=== PATIENT | male | born 1940 | race Caucasian/White ===

== ENCOUNTER 2016-12-04 15:15 | Emergency (ER) | payer MEDICARE, BC ==
[2016-12-04 15:23] VITALS: BP 141/69; PULSE 70; RESP 20; TEMP 97.9
[2016-12-04] MEDS ORDERED: HYDROcodone/APAP 5-325MG 1 EACH TAB PO STA (15:44)
--- NOTE | 2016-12-04 15:48 | ED ---
Back Pain [facility] - General Chief Complaint: Back Pain/Injury Stated Complaint: low back pain Time Seen by Provider: 12/04/16 15:26 Source: patient, RN notes reviewed Limitations: no limitations - History of Present Illness Initial Comments: Patient is a 75-year-old male presents to the emergency room for evaluation of low back pain. Patient states he has history of chronic low back pain. Patient states he takes Naprosyn and tramadol. Patient states last night while sitting at his house he noted more consistent low back pain. Patient states the pain is in the same area as his normal pain but this pain is different. Patient states usually his pain is on and off and is worse in the morning. Patient states this pain is constant and sharp. Patient denies any pain radiating down his legs or into his buttock. Patient denies any numbness or tingling going down his legs. Patient denies fecal or urinary incontinence. Patient denies saddle anesthesia. Patient denies any recent fall or trauma to his back. Patient denies recent heavy lifting. Patient states he may have twisted the wrong way but did not recognize any significant pain afterwards. Patient denies any extremity weakness or unilateral extremity weakness. Patient does state he has a history of kidney stones. Patient is not sure if this pain is caused by kidney stones. Patient denies pain or burning during urination, trouble urinating or blood in urine. Patient denies nausea or vomiting. Patient denies abdominal pain. Patient denies headache or dizziness. - Related Data Home Medications Medication Instructions Recorded Confirmed Olmesartan Medoxomil [Benicar] 20 mg PO QAM 10/29/14 12/04/16 Tamsulosin HCl 0.4 mg PO HS 10/29/14 12/04/16 Atorvastatin [Lipitor] 10 mg PO DAILY 02/18/16 12/04/16 Cholecalciferol [Vitamin D3] 1,000 unit PO DAILY 02/18/16 12/04/16 Multivit-Min/FA/Lycopen/Lutein 1 tab PO DAILY 02/18/16 12/04/16 [Centrum Silver Tablet] Vit C/E/Zn/Coppr/Lutein/Zeaxan 1 cap PO DAILY 02/18/16 12/04/16 [Preservision Areds 2 Softgel] traMADol HCL [Ultram] 50 mg PO Q6HR PRN 02/18/16 12/04/16 Aspirin EC [Ecotrin Low Dose] 81 mg PO DAILY 12/04/16 12/04/16 Glucosamine/Chondr [place] A Sod [Osteo 1 tab PO DAILY 12/04/16 12/04/16 Bi-Flex Caplet] Naproxen 500 mg PO BID 12/04/16 12/04/16 [place]-3 Fatty Acids/Fish Oil [Fish 1 cap PO DAILY 12/04/16 12/04/16 Oil 1,000 mg Softgel] Previous Rx's Medication Instructions Recorded Diazepam [Valium] 5 mg PO BID PRN #5 tab 12/04/16 HYDROcodone/APAP 5-325MG [[place] 1 tab PO Q6HR PRN #10 tab 12/04/16 5-325] Allergies Allergy/AdvReac Type Severity Reaction Status Date / Time No Known Allergies Allergy Verified 12/04/16 15:30 Review of Systems ROS Statement: Those systems with pertinent positive or pertinent negative responses have been documented in the HPI. ROS Other: All systems not noted in ROS Statement are negative. Past Medical History Past Medical History: Hypertension, Musculoskeletal Disorder, Osteoarthritis (OA ) Additional Past Medical History / Comment(s): vertigo, BPH,steroids Dec 2015 FOR RT HIP PAIN(HAD INJ TOO) History of Any Multi-Drug Resistant Organisms: None Reported Past Surgical History: Hernia Repair, Orthopedic Surgery Additional Past Surgical History / Comment(s): [facility] inguinal hernia repairs ,lt knee repair, 02-23-16 TOTAL RT HIP Past Anesthesia/Blood Transfusion Reactions: Motion Sickness Additional Past Anesthesia/Blood Transfusion Reaction / Comment(s): vertigo Past Psychological History: No Psychological Hx Reported Smoking Status: Former smoker Past Alcohol Use History: None Reported Past Drug Use History: None Reported - Past Family History Mother Family Medical History: Cancer Additional Family Medical History / Comment(s): Mother is alive at age 98 with history of breast ca([facility]) Father Family Medical History: Osteoarthritis (OA) Additional Family Medical History / Comment(s): back problems, at age 66 from blood clot or heart attack General Exam - General Exam Comments Initial Comments: sitting in exam room, no distress. Limitations: no limitations General appearance: alert, in no apparent distress Head exam: Present: atraumatic, normocephalic, normal inspection Eye exam: Present: normal appearance Respiratory exam: Present: normal lung sounds bilaterally. Absent: respiratory distress Cardiovascular Exam: Present: regular rate, normal rhythm, normal heart sounds Extremities exam: Present: normal inspection, full ROM. Absent: tenderness Back exam: Present: normal inspection, full ROM, paraspinal tenderness ( bilateral lumbosacral), vertebral tenderness (lumbosacral). Absent: CVA tenderness (R), CVA tenderness (L) Neurological exam: Present: alert, oriented X3, CN II-XII intact, normal gait Psychiatric exam: Present: normal affect, normal mood Skin exam: Present: warm, dry, intact, normal color. Absent: rash Course Vital Signs 12/04/16 15:20 Temperature 97.9 F Pulse Rate 70 Respiratory 20 Rate Blood Pressure 141/69 O2 Sat by Pulse 98 Oximetry Medical Decision Making - Medical Decision Making Patient is a 75-year-old male presenting to the emergency room complaining of acute on chronic low back pain. Urinalysis shows no significant findings. X- ray shows no acute findings. Patient states he is feeling better after Trona given. Will send patient home with Trona and valium for pain. Patient advised to follow-up with primary care provider for further evaluation and possible MRI to rule out any other abnormalities. Patient states he understands everything that was discussed with him. Return parameters discussed. Case discussed with Dr. Wan. No neuro deficits. - Lab Data Lab Results 12/04/16 Range/Units 15:40 Urine Color Yellow Urine Appearance Clear (Clear) Urine pH 6.0 (5.0-8.0) Ur Specific [place] 1.018 (1.001-1.035) Urine Protein Negative (Negative) Urine Glucose (UA) Negative (Negative) Urine Ketones Negative (Negative) Urine Blood Negative (Negative) Urine Nitrite Negative (Negative) Urine Bilirubin Negative (Negative) Urine Urobilinogen <2.0 (<2.0) mg/dL Ur Leukocyte Esterase Negative (Negative) - Radiology Data Radiology results: report reviewed, image reviewed Disposition Clinical Impression: Acute exacerbation of chronic low back pain Disposition: HOME SELF-CARE Condition: Good Instructions: Chronic Back Pain (ED) Additional Instructions: Ice on and off. Take pain medications as needed. Please follow-up with primary care provider for further evaluation. If any new symptom arises or symptoms worsen, return to ER as soon as possible. Prescriptions: HYDROcodone/APAP 5-325MG [[place] 5-325] 1 tab PO Q6HR PRN #10 tab PRN Reason: Pain Diazepam [Valium] 5 mg PO BID PRN #5 tab PRN Reason: Pain Referrals: Angel Nixon MD [Primary Care Provider] - 1-2 days Time of Disposition: 16:50
[2016-12-04 15:52] LABS: Appearance,Urine Clear (Clear); Bilirubin,Urine Negative (Negative); Glucose,Urine (UA) Negative (Negative); Ketones,Urine Negative (Negative); Leukocyte Esterase,Urine Negative (Negative); Nitrite,Urine Negative (Negative); Protein,Urine Negative (Negative); Specific Gravity,Urine 1.018 (1.001-1.035); UA Billing (MACRO vs. MICRO) CHEM; Urobilinogen,Urine <2.0 mg/dL (<2.0)
--- NOTE | 2016-12-04 16:07 | XR ---
EXAMINATION TYPE: XR lumbosacral spine min 4V DATE OF EXAM: 12/04/2016 COMPARISON: 08/31/2013 HISTORY: Back pain TECHNIQUE: 5 views FINDINGS: There is mild dextro scoliosis. There is degenerative disc space narrowing throughout the l umbar spine with sclerosis and spur formation. Posterior elements are intact. Sacroiliac joints appea r intact. IMPRESSION: Moderate multilevel spondylosis. No fracture. No change compared to old exam.
== END 2016-12-04 17:07 | disposition home or self-care (01) ==
LOC: EC 15:15
DX: G89.29 Other chronic pain (principal); M54.5 Low back pain; I10 Essential (primary) hypertension; M19.90 Unspecified osteoarthritis, unspecified site; N40.0 Benign prostatic hyperplasia without lower urinary tract symptoms; Z87.891 Personal history of nicotine dependence; Z79.1 Long term (current) use of non-steroidal anti-inflammatories (NSAID); Z79.82 Long term (current) use of aspirin; Z79.899 Other long term (current) drug therapy; Z82.69 Family history of other diseases of the musculoskeletal system and connective tissue
CPT/HCPCS: 72110; 81003; 99283

== ENCOUNTER → 2020-09-23 | Outpatient (CLI) | payer MEDICARE, BC ==
--- NOTE | 2020-09-23 15:36 | XR ---
EXAMINATION TYPE: XR chest 2V DATE OF EXAM: 09/23/2020 COMPARISON: 07/17/2010 INDICATION: Covid, short of breath TECHNIQUE: Frontal and lateral views of the chest are obtained. FINDINGS: The heart size is normal. The pulmonary vasculature is normal. The lungs are clear. IMPRESSION: 1. No acute pulmonary process.
== END | disposition home or self-care (01) ==
LOC: RADXRMAIN 11:13
PROVIDERS: ATTEND Nurse Practitioner Family
DX: R06.02 Shortness of breath (principal); U07.1 COVID-19
CPT/HCPCS: 71046

== ENCOUNTER 2022-01-25 08:55 | Emergency (ER) | payer MEDICARE, BC ==
[2022-01-25 09:02] VITALS: RESP 18; TEMP 97.7
[2022-01-25] MEDS ORDERED: SODIUM CHLORIDE 0.9% 1,000 ML IV ONE (11:10)
[2022-01-25] MEDS ORDERED: KETOROLAC 15 MG/ML 1 ML VIAL IVP STA (11:10)
--- NOTE | 2022-01-25 11:14 | XR ---
EXAMINATION TYPE: XR KUB DATE OF EXAM: 01/25/2022 HISTORY: Flank pain, possible kidney stone. Comparison: None. Technique: Single upright KUB is submitted for interpretation. Findings: Dextrocurvature of the thoracolumbar spine. Multilevel degenerative disc disease visualized spine. Po stsurgical changes from right total arthroplasty. No definitive left renal calcifications or calcific ation along the left ureteral course. No definitive calcifications along the right ureteral course. T here is a least 2 calcifications overlying the right kidney measuring up to 6 mm. No pneumoperitoneum . Elevation the right hemidiaphragm. Nonobstructive bowel gas pattern. IMPRESSION: 1. No acute process. 2. Suggested right renal calculi measuring up to 6 cm.
--- NOTE | 2022-01-25 11:38 | ED ---
General Adult HPI - General Chief complaint: Abdominal Pain Stated complaint: Kidney stone Time Seen by Provider: 01/25/22 10:42 Source: patient Mode of arrival: ambulatory Limitations: no limitations - History of Present Illness Initial comments: Patient is an 81-year-old male presenting with chief complaint of left-sided flank pain. Patient states is been ongoing for the last week. Patient has a history of kidney stones, states that this feels similar. He denies any abdominal pain. No dysuria or hematuria. No fever or chills. No nausea or vom iting. No diarrhea, hematochezia, melena. No chest pain or difficulty breathing. - Related Data Home Medications Medication Instructions Recorded Confirmed Tamsulosin HCl 0.4 mg PO HS 10/29/14 01/25/22 Atorvastatin [Lipitor] 10 mg PO DAILY 02/18/16 01/25/22 Multivit-Min/FA/Lycopen/Lutein 1 tab PO DAILY 02/18/16 01/25/22 [Centrum Silver Tablet] Vit C/E/Zn/Coppr/Lutein/Zeaxan 1 cap PO DAILY 02/18/16 01/25/22 [Preservision Areds 2 Softgel] Aspirin EC [Ecotrin Low Dose] 81 mg PO DAILY 12/04/16 01/25/22 Glucosamine/Chondr [place] A Sod [Osteo 1 tab PO DAILY 12/04/16 01/25/22 Bi-Flex Caplet] Cholecalciferol [Vitamin D3 (25 25 mcg PO DAILY 01/25/22 01/25/22 Mcg = 1000 Iu)] Losartan Potassium [Cozaar] 100 mg PO DAILY 01/25/22 01/25/22 Metoprolol Tartrate [Lopressor] 25 mg PO DAILY 01/25/22 01/25/22 Pregabalin [Lyrica] 75 mg PO BID 01/25/22 01/25/22 Allergies Allergy/AdvReac Type Severity Reaction Status Date / Time No Known Allergies Allergy Verified 01/25/22 13:02 Review of Systems ROS Statement: Those systems with pertinent positive or pertinent negative responses have been documented in the HPI. ROS Other: All systems not noted in ROS Statement are negative. Past Medical History Past Medical History: Hypertension, Musculoskeletal Disorder, Osteoarthritis (OA) Additional Past Medical History / Comment(s): vertigo, BPH,steroids Dec 2015 FOR RT HIP PAIN(HAD INJ TOO) History of Any Multi-Drug Resistant Organisms: None Reported Past Surgical History: Hernia Repair, Orthopedic Surgery Additional Past Surgical History / Comment(s): [facility] inguinal hernia repairs ,lt knee repair, 02-23-16 TOTAL RT HIP Past Anesthesia/Blood Transfusion Reactions: Motion Sickness Additional Past Anesthesia/Blood Transfusion Reaction / Comment(s): vertigo Past Psychological History: No Psychological Hx Reported Smoking Status: Never smoker Past Alcohol Use History: None Reported Past Drug Use History: None Reported - Past Family History Mother Family Medical History: Cancer Additional Family Medical History / Comment(s): Mother is alive at age 98 with history of breast ca([facility]) Father Family Medical History: Osteoarthritis (OA) Additional Family Medical History / Comment(s): back problems, at age 66 from blood clot or heart attack General Exam Limitations: no limitations General appearance: alert, in no apparent distress Head exam: Present: atraumatic, normocephalic, normal inspection Eye exam: Present: normal appearance, PERRL, EOMI. Absent: scleral icterus, conjunctival injection, periorbital swelling Neck exam: Present: normal inspection Respiratory exam: Present: normal lung sounds bilaterally. Absent: respiratory distress, wheezes, rales, rhonchi, stridor Cardiovascular Exam: Present: regular rate, normal rhythm, normal heart sounds. Absent: systolic murmur, diastolic murmur, rubs, gallop, clicks Back exam: Absent: CVA tenderness (R), CVA tenderness (L) Neurological exam: Present: alert, oriented X3, CN II-XII intact Psychiatric exam: Present: normal affect, normal mood Skin exam: Present: warm, dry, intact, normal color. Absent: rash Course Vital Signs 01/25/22 01/25/22 08:59 14:08 Temperature 97.7 F Pulse Rate 70 82 Respiratory 18 18 Rate Blood Pressure 129/81 147/86 O2 Sat by Pulse 99 Oximetry Medical Decision Making - Medical Decision Making Patient is an 81-year-old male presenting with chief complaint of left-sided flank pain has been ongoing for the last week. Patient also has history of chronic back pain. No red flag symptoms. No CVA tenderness. Lab work is on actionable. CT shows multiple bilateral nonobstructing renal stones. On reassessment patient states his pain is well controlled. Likely musculoskeletal in origin or potential passed stone. Follow-up with PCP. Report back to ER with any new or worsening symptoms. Discussed return parameters and answered all questions. Patient conveyed verbal understanding and agreed to the plan. I discussed this case in detail with my attending Dr. Leo. - Lab Data Result diagrams: 01/25/22 11:38 01/25/22 11:38 Lab Results 01/25/22 01/25/22 01/25/22 Range/Units 11:38 11:38 11:38 WBC 7.4 (3.8-10.6) k/uL RBC 4.30 (4.30-5.90) m/uL Hgb 12.9 L (13.0-17.5) gm/dL Hct 37.9 L (39.0-53.0) % MCV 88.3 (80.0-100.0) fL MCH 30.0 (25.0-35.0) pg MCHC 33.9 (31.0-37.0) g/dL RDW 13.5 (11.5-15.5) % Plt Count 188 (150-450) k/uL MPV 8.2 Neutrophils % 76 % Lymphocytes % 14 % Monocytes % 6 % Eosinophils % 3 % Basophils % 1 % Neutrophils # 5.6 (1.3-7.7) k/uL Lymphocytes # 1.0 (1.0-4.8) k/uL Monocytes # 0.5 (0-1.0) k/uL Eosinophils # 0.2 (0-0.7) k/uL Basophils # 0.1 (0-0.2) k/uL Sodium 136 L (137-145) mmol/L Potassium 4.9 (3.5-5.1) mmol/L Chloride 102 (98-107) mmol/L Carbon Dioxide 24 (22-30) mmol/L Anion Gap 10 mmol/L BUN 31 H (9-20) mg/dL Creatinine 1.21 (0.66-1.25) mg/dL Est GFR (CKD-EPI)AfAm 65 (>60 ml/min/1.73 sqM) Est GFR (CKD-EPI)NonAf 56 (>60 ml/min/1.73 sqM) Glucose 90 (74-99) mg/dL Plasma Lactic Acid Justo (0.7-2.0) mmol/L Calcium 9.4 (8.4-10.2) mg/dL Total Bilirubin 0.6 (0.2-1.3) mg/dL AST 25 (17-59) U/L ALT 21 (4-49) U/L Alkaline Phosphatase 63 (38-126) U/L Total Protein 6.2 L (6.3-8.2) g/dL Albumin 4.0 (3.5-5.0) g/dL Urine Color Yellow Urine Appearance Clear (Clear) Urine pH 6.0 (5.0-8.0) Ur Specific [place] 1.021 (1.001-1.035) Urine Protein Negative (Negative) Urine Glucose (UA) Negative (Negative) Urine Ketones Negative (Negative) Urine Blood Negative (Negative) Urine Nitrite Negative (Negative) Urine Bilirubin Negative (Negative) Urine Urobilinogen <2.0 (<2.0) mg/dL Ur Leukocyte Esterase Negative (Negative) 01/25/22 Range/Units 11:38 WBC (3.8-10.6) k/uL RBC (4.30-5.90) m/uL Hgb (13.0-17.5) gm/dL Hct (39.0-53.0) % MCV (80.0-100.0) fL MCH (25.0-35.0) pg MCHC (31.0-37.0) g/dL RDW (11.5-15.5) % Plt Count (150-450) k/uL MPV Neutrophils % % Lymphocytes % % Monocytes % % Eosinophils % % Basophils % % Neutrophils # (1.3-7.7) k/uL Lymphocytes # (1.0-4.8) k/uL Monocytes # (0-1.0) k/uL Eosinophils # (0-0.7) k/uL Basophils # (0-0.2) k/uL Sodium (137-145) mmol/L Potassium (3.5-5.1) mmol/L Chloride (98-107) mmol/L Carbon Dioxide (22-30) mmol/L Anion Gap mmol/L BUN (9-20) mg/dL Creatinine (0.66-1.25) mg/dL Est GFR (CKD-EPI)AfAm (>60 ml/min/1.73 sqM) Est GFR (CKD-EPI)NonAf (>60 ml/min/1.73 sqM) Glucose (74-99) mg/dL Plasma Lactic Acid [place] 0.7 (0.7-2.0) mmol/L Calcium (8.4-10.2) mg/dL Total Bilirubin (0.2-1.3) mg/dL AST (17-59) U/L ALT (4-49) U/L Alkaline Phosphatase (38-126) U/L Total Protein (6.3-8.2) g/dL Albumin (3.5-5.0) g/dL Urine Color Urine Appearance (Clear) Urine pH (5.0-8.0) Ur Specific [place] (1.001-1.035) Urine Protein (Negative) Urine Glucose (UA) (Negative) Urine Ketones (Negative) Urine Blood (Negative) Urine Nitrite (Negative) Urine Bilirubin (Negative) Urine Urobilinogen (<2.0) mg/dL Ur Leukocyte Esterase (Negative) Disposition Clinical Impression: Renal stones Disposition: HOME SELF-CARE Condition: Good Instructions (If sedation given, give patient instructions): Kidney Stones (ED), Flank Pain (ED) Additional Instructions: Follow-up with PCP. Report back to ER with any new or worsening symptoms. Take Motrin and Tylenol as needed for pain control. Is patient prescribed a controlled substance at d/c from ED?: No Referrals: Angel Nixon MD [Primary Care Provider] - 1-2 days Time of Disposition: 13:45
[2022-01-25 11:51] LABS: Appearance,Urine Clear (Clear); Basophils # (A) 0.1 k/uL (0-0.2); Basophils % (A) 1 %; Bilirubin,Urine Negative (Negative); Blood,Urine Negative (Negative); Color,Urine Yellow; Eosinophils # (A) 0.2 k/uL (0-0.7); Eosinophils % (A) 3 %; Glucose,Urine (UA) Negative (Negative); HCT 37.9 % (39.0-53.0); HGB 12.9 gm/dL (13.0-17.5); Ketones,Urine Negative (Negative); Leukocyte Esterase,Urine Negative (Negative); Lymphocytes % (A) 14 %; MCHC 33.9 g/dL (31.0-37.0); MCV 88.3 fL (80.0-100.0); Mean Platelet Volume 8.2; Monocytes # (A) 0.5 k/uL (0-1.0); Monocytes % (A) 6 %; Neutrophils # (A) 5.6 k/uL (1.3-7.7); Neutrophils % (A) 76 %; Nitrite,Urine Negative (Negative); Platelet Count 188 k/uL (150-450); Protein,Urine Negative (Negative); RDW 13.5 % (11.5-15.5); Specific Gravity,Urine 1.021 (1.001-1.035); Urobilinogen,Urine <2.0 mg/dL (<2.0); WBC 7.4 k/uL (3.8-10.6)
[2022-01-25 12:14] LABS: Calcium 9.4 mg/dL (8.4-10.2); Potassium 4.9 mmol/L (3.5-5.1); Total Bilirubin 0.6 mg/dL (0.2-1.3); Total Protein 6.2 g/dL (6.3-8.2)
--- NOTE | 2022-01-25 12:54 | CT ---
EXAMINATION TYPE: CT abdomen pelvis wo con DATE OF EXAM: 01/25/2022 COMPARISON: None INDICATION: left flank pian DLP: 756.1 mGycm, Automated exposure control for dose reduction was used. CONTRAST: 0 mL of Isovue 300. Study performed without Oral Contrast TECHNIQUE: Axial images were obtained from above the diaphragm to the pubic rami in the axial plane a t 5 mm thick sections. Reconstructed images are reviewed on the computer in the coronal plane. FINDINGS: Limited CT sections are obtained the lung bases. There is a punctate peripheral density right midlun g. Series 204 image 4. Some minimal compressive atelectasis may be within the dependent medial lung b ases. Coronary artery calcification is noted. Some calcified adenopathy medially in the right infrahi lar region. CT ABDOMEN: Liver: There is a 1.7 cm cyst within the liver. Spleen: Normal Pancreas: Normal Adrenal glands: The adrenal glands are normal. Gallbladder: Normal Kidneys: No masses are evident. No hydronephrosis is present. No cysts are present. Multiple nonob structing renal stones are present bilaterally. The largest on the left lateral pleural injury 0.4 cm . Largest on the right is at the inferior lateral right pole measuring 0.6 cm. Aorta: Vascular calcification is within the aorta. Inferior vena cava: Normal. CT PELVIS: There is limitation due to beam hernia and artifact from a right hip prosthesis. Loops of bowel within the abdomen and pelvis are normal. Scattered diverticuli are present. No ac steven diverticulitis is evident. Appendix: Normal as visualized. Urinary bladder: There is limitation due to beam hardening artifact. Genitourinary structures: Prostate contains calcification. Osseous structures: No suspicious lytic or sclerotic lesions. Degenerative disc changes present L5-S1 . Endplate changes and disc has an intrathecal sac compression at the L4-5 level. IMPRESSIONS: 1. Multiple bilateral nonobstructing renal stones. 2. Diverticulosis without acute diverticulitis.
[2022-01-25 14:09] VITALS: BP 147/86; PULSE 82
== END 2022-01-25 14:10 | disposition home or self-care (01) ==
LOC: EC 08:55
DX: N20.0 Calculus of kidney (principal); I10 Essential (primary) hypertension; M19.90 Unspecified osteoarthritis, unspecified site; Z79.82 Long term (current) use of aspirin; Z79.899 Other long term (current) drug therapy
CPT/HCPCS: 36415; 80053; 83605; 85025; 81003; 74018; 74176; 99284; 96374; 96361 ×3; J1885

== ENCOUNTER → 2022-09-02 | Outpatient (CLI) | payer MEDICARE, BC ==
--- NOTE | 2022-09-02 18:08 | CT ---
CT CHEST FOR PULMONARY EMBOLISM. EXAMINATION TYPE: CT angio chest DATE OF EXAM: 09/02/2022 INDICATION: aneurysm CT DLP: 879.5 mGycm, Automated exposure control for dose reduction was used. CONTRAST: Patient injected with 80cc mL of Isovue 370. COMPARISON: TECHNIQUE: CT of the chest is performed on a spiral scan at 2 mm thick sections. Study is performed with intravenous contrast timed for evaluation for thoracic aorta. This will limit additional portion s of the evaluation. FINDINGS: No persistent filling defects are evident to suggest an acute pulmonary embolism. No mediastinal or hilar adenopathy enlarged by CT criteria is evident. The ascending aorta diameter at the level of the main pulmonary artery is 4.8 cm. The main pulmonary artery diameter at the bifur cation is 2.0 cm. Aorta at the aortic root is 3.6 cm. Transverse dimension of the thoracic aorta and its narrowest is 2 .4 cm. Aorta posterior aortic arch diameter appears to be 3.1 centimeters. At the diaphragm is 2.7 cm . There is a calcified granuloma in the lateral right apex. Calcifications in the posterior lateral rig ht upper lobe. Calcification within the lateral right chest periphery. There is a punctate density wi thin the anterior lateral left lung measuring 0.3 cm. Series [address] section through the upper abdomen are unremarkable. IMPRESSIONS: 1. Ascending thoracic aortic aneurysm 4.8 cm.
== END | disposition home or self-care (01) ==
LOC: RADCTMAIN 11:51
PROVIDERS: ATTEND Internal Medicine Interventional Cardiology
DX: I71.21 Aneurysm of the ascending aorta, without rupture (principal)
CPT/HCPCS: 82565; 84520; 71275; 36415; Q9967

== ENCOUNTER → 2023-08-26 | Outpatient (CLI) | payer MEDICARE, BC ==
[2023-08-26 14:32] LABS: HCT 40.1 % (39.6-50.0); HGB 12.7 g/dL (13.0-17.0); MCH 28.1 pg (27.0-32.0); MCHC 31.7 g/dL (32.0-37.0); MCV 88.7 FL (80.0-97.0); NRBC Per 100 WBC 0 X 10*3/uL (0.00-0.01); Platelet Count 207 X 10*3/uL (140-440); RBC 4.52 X 10*6/uL (4.40-5.60); RDW 13.9 % (11.5-14.5)
[2023-08-26 16:51] LABS: ALT 23 U/L (10-49); AST 25 U/L (14-35); Albumin 4.4 g/dL (3.8-4.9); Alkaline Phosphatase 67 U/L (41-126); BUN/Creat Ratio 18.69 Ratio (12.00-20.00); Blood Urea Nitrogen 24.3 mg/dL (9.0-27.0); Calcium 10.1 mg/dL (8.7-10.3); Chloride 102 mmol/L (96-109); Globulin 2.1 g/dL (1.6-3.3); Glucose 114 mg/dL (70-110); Potassium 4.9 mmol/L (3.5-5.5); Sodium 141 mmol/L (135-145); Total Bilirubin 0.4 mg/dL (0.3-1.2); Total Protein 6.5 g/dL (6.2-8.2)
[2023-08-26 19:19] LABS: INR 0.97 sec (0.93-1.11); Prothrombin Time 10.5 sec (9.9-11.9)
== END | disposition home or self-care (01) ==
LOC: LABWHC1 09:10
PROVIDERS: ATTEND Orthopaedic Surgery Sports Medicine
DX: Z01.812 Encounter for preprocedural laboratory examination (principal); M19.012 Primary osteoarthritis, left shoulder; Z22.322 Carrier or suspected carrier of Methicillin resistant Staphylococcus aureus
CPT/HCPCS: 36415; 80053; 85027; 85610; 85730

== ENCOUNTER → 2023-08-30 | Outpatient (CLI) | payer MEDICARE, BC | END | disposition home or self-care (01) | LOC: LABPAT 15:24 | PROVIDERS: ATTEND Orthopaedic Surgery Sports Medicine | DX: Z01.812 Encounter for preprocedural laboratory examination (principal); M19.012 Primary osteoarthritis, left shoulder; Z22.322 Carrier or suspected carrier of Methicillin resistant Staphylococcus aureus | CPT/HCPCS: 36415; 85730; 87070 ==

== ENCOUNTER 2023-09-08 05:36 | Day surgery (SDC) | payer MEDICARE, BC ==
[~2023-09-08 05:36] MED LIST: LIDOCAINE 1% (10MG/ML) FOR IV START INTRADERMA PRN; ONDANSETRON 4 MG/2 ML VIAL IVP PRN; TRANEXAMIC 1,000 MG/100ML-NACL 1,000 MG in SALINE 1 100ML.BAG IVPB PRN
[2023-09-08] MEDS: LACTATED RINGERS 1,000 ML IV SCH ×2 (06:35→12:30)
[2023-09-08] MEDS: ACETAMINOPHEN TAB 500 MG TAB PO PRN (06:45)
[2023-09-08] MEDS: GABAPENTIN 300 MG CAP PO PRN (06:46)
[2023-09-08] MEDS: MELOXICAM 7.5 MG TAB PO PRN (06:46)
[2023-09-08] MEDS: ONDANSETRON 4 MG/2 ML VIAL IVP ONE (06:48)
[2023-09-08] MEDS: DEXAMETHASONE SOD PHOSPHATE 4 MG/ML 1 ML VIAL IV ONE (06:48)
[2023-09-08] MEDS: MIDAZOLAM 2 MG/2 ML VIAL IVP ONE (06:52)
[2023-09-08] MEDS: ceFAZolin 1,000 MG in SODIUM CHLORIDE 0.9% 1,000 ML IRRIGATION ONE (07:30)
[2023-09-08] MEDS ORDERED: ONDANSETRON 4 MG/2 ML VIAL IVP PRN (07:48)
[2023-09-08] MEDS ORDERED: METOCLOPRAMIDE 5 MG/ML 2 ML VIAL IVP PRN (07:48)
[2023-09-08] MEDS ORDERED: diphenhydrAMINE 25 MG CAP PO PRN (07:48)
[2023-09-08] MEDS ORDERED: HYDROmorphone 0.5 MG/0.5 ML SYRINGE IVP PRN ×2 (07:48)
[2023-09-08] MEDS ORDERED: HYDROcodone/APAP 7.5-325MG 1 EACH TAB PO PRN (07:51)
[2023-09-08] MEDS: VANCOMYCIN 1,000 MG VIAL MISCELLANE ONE ×2 (08:03→08:35)
[2023-09-08] MEDS: LACTATED RINGERS 1,000 ML IV ONE (08:57)
[2023-09-08] MEDS: HYDROmorphone 0.5 MG/0.5 ML SYRINGE IVP PRN (09:59)
--- NOTE | 2023-09-08 10:07 | OP ---
OPERATIVE REPORT DATE OF SERVICE : 09/08/2023 ART LIBRARIAN: Jeison Cardenas PA-C. PREOPERATIVE DIAGNOSIS: Left shoulder advanced rotator cuff arthropathy. POSTOPERATIVE DIAGNOSIS: Left shoulder advanced rotator cuff arthropathy. OPERATION: Left reverse total shoulder arthroplasty. ANESTHESIA: General endotracheal. ESTIMATED BLOOD LOSS: 100 mL. DRAINS: None. COMPLICATIONS: None apparent. DISPOSITION: Postanesthesia care unit. INDICATIONS: Angel is a very pleasant 82-year-old male with longstanding left shoulder pain. Workup including x-rays revealed advanced rotator cuff arthropathy of the left shoulder. At this point, it was thought that he has failed conservative management and he would like to proceed with operative intervention. The risks of procedure were discussed with him in detail. These risks include, but are not limited to risk of infection, nerve damage, bleeding, pain, instability in the shoulder, loosening of the implants, and deep infection. There is also small risk of deep vein thrombosis, which could lead to fatal pulmonary embolism. The patient understood these risks. All of his questions with regard to the risks of procedure were answered to his satisfaction. Appropriate informed consent was obtained. DESCRIPTION OF PROCEDURE: The patient was identified in the preoperative holding area. Surgical site was marked by both the patient and myself. He was given 2 g of Ancef IV for prophylactic purposes. He was then transported to the operative suite. He was placed supine on the operating table. A general anesthetic was then administered and dosed per the Anesthesia Department without apparent complication. Examination under anesthesia was then performed of the left shoulder. He had elevation to 90 degrees. External rotation to the side was to 20 degrees. The patient was then placed into the beach chair position, well-padded in preparation for surgery. Great care was taken to ensure that the cervical spine was in neutral alignment, well-padded and maintained that way throughout the operative procedure. Great care was also taken to ensure that his legs were appropriately padded as well. The patient's left upper extremity was then prepped and draped in usual sterile fashion. Standard surgical pause undertaken to ensure that we were operating the correct site and that appropriate preoperative antibiotics had been given. All staff in the room were in agreement, then we proceeded. The acromion AC joint clavicle and coracoid were marked with a surgical pen. A planned incision starting at the level of the clavicle and extending distally over the deltopectoral interval approximately 1 cm lateral to the coracoid was marked with a surgical pen. The incision was then made with a 10-blade scalpel. Dissection was carried down sharply to the deltoid fascia. The deltopectoral was then identified at the level of the clavicle. A small band retractor was then placed onto the proximal deltoid. I then released the deltoid fascia on the lateral aspect of the cephalic vein. The vein was left in its bed medially. The cephalic vein was protected throughout the entire case. I then identified the clavipectoral fascia. This was incised proximally to the level of the coracoacromial ligament. The coracoacromial ligament was left intact. I then used my finger to spread the interval between the conjoint tendon and the subscapularis. I felt for the axillary nerve, which was readily palpable. I then cleared the subacromial and subdeltoid spaces of bursal and scar tissue. I then utilized a brown retractor to hold the deltoid and expose the humeral head. I then proceeded with the release of the subscapularis in the anterior-inferior shoulder capsule. The rotator cuff was inspected. It was completely devoid of rotator cuff attachment to the greater tuberosity. The course of the biceps tendon was also identified. I then released the rotator interval. This was released at the base of the coracoid and then out laterally. The subscapularis and capsule released intratendinously. The subscapularis and capsule release extended distally in a lazy-S fashion approximately 1 cm medial to the biceps tendon. I then continued to release the capsule along the inferior neck in a vertical fashion to approximately the 6 o'clock position. Great care was taken to ensure that the capsule was always visualized as it was released as to avoid injuring the axillary nerve. I then brought a Kruse welfare interviewer with the arm externally rotated and abducted. I continued to release the capsule inferomedially to the 4 o'clock position. The inferior osteophytes were now removed. This was done with a rongeur. I then proceeded with preparation of the humerus. I removed all the goat's robb osteophytes. I then removed the subchondral plate from the superior aspect of the humeral head utilizing a large rongeur. I then used a starting reamer to gain access to the humeral canal. This was 1 cm medial to the rotator cuff insertion and 1 cm posterior to the bicipital groove. I then prepared the humeral canal with hand reaming. I started with a 6 mm reamer and incrementally increased until firm resistance was encountered at 14 mm. The reamer handle was then left in place. Then utilized a humeral resection guide, set at 30 degrees of retrotorsion. The cutting block was then set at the previous insertion of rotator cuff. I then proceeded to osteotomize the humeral head with an oscillating saw. I removed the goat's resection guide and then completed the osteotomy. I then proceeded with trial stem placement. A trial 14 was then broached in the canal. The 14 mm trial broach was then left in place. At this point, I did release the biceps tendon. This was tenotomized at the level of the superior labrum. A bone hook was then used to pull the humerus out laterally. I inspected the joint for any loose bodies. The condition of the cuff was again inspected. As mentioned, he was completely devoid of any attachment of the rotator cuff to the greater tuberosity. The Bhattman retractor was then placed on the posterior glenoid rim. The arm was placed at approximately 80 degrees of abduction and in slight flexion on the Kruse stand. I then proceeded to remove the hypertrophic labrum to definitively identify the actual glenoid. I then utilized the mini base plate starting guide. The pin was then placed in the inferior center of the glenoid in approximately 10 degrees of inferior tilt. I then proceeded to ream the glenoid fossa. This was done with the mini base plate reamer. Reaming was done as minimal as possible as to preserve as much subchondral bone as possible. I then had the access services representative open a standard mini base plate. This was then impacted into the actual glenoid. I then placed a 30 mm central screw. This was tightened fully. The bite was excellent. I was able to rotate the scapula through the screwdriver when the screw was fully seated. I then proceeded with placing the peripheral locking screws. The inferior screw was a 25 mm screw. The anterior and posterior screws were 15 mm locking screws and the superior screw was a 20 mm locking screw. I then had the access services representative open a 40 mm glenosphere. The Lee taper was impacted onto the glenosphere. The Lee taper was dried and then impacted into the real base plate. The glenosphere was seated firmly. At this point, we proceeded to thoroughly irrigate the wound. The IrriSept antiseptic solution was utilized at this point in time. I then proceeded with trial of the humerus. A standard tray and standard poly was then placed onto the trial stem. It was a mildly difficult reduction. The shoulder was stable throughout a full range of motion. There was no impingement noted. The shoulder was then redislocated. I made a decision to proceed with the standard tray and standard poly. I had the access services representative open a [employer] 14 mini stem, a standard tray and a standard poly for a 40 mm glenosphere. The stem was then impacted into the proximal humerus in approximately 30 degrees of retrotorsion. The Lee taper was dried and then the tray poly was impacted onto the real stem. The shoulder was then reduced. Again, it was a mildly difficult reduction. It was stable throughout a full range of motion. There was no impingement noted. The conjoint tendon did not have any undue tension. At this point, I did feel for the axillary nerve, which was readily palpable and uninjured. At this point, we proceeded with closure. The wound was again thoroughly irrigated with sterile saline solution with antibiotic added via pulse lavage. The remaining IrriSept antiseptic solution was then utilized at this point in time. Approximately 500 mg of vancomycin powder was placed deep. The deltopectoral interval was then reapproximated with 0 Vicryl interrupted suture. After closure of the deltopectoral interval, the wound was again thoroughly irrigated and the remaining 500 mg of vancomycin powder was placed subcutaneously. The subcutaneous tissue was closed with 2-0 Vicryl interrupted suture. The skin was closed with a running 3-0 Quill suture. Dermabond was applied at the incision. A sterile compressive dressing was applied. The patient's left upper extremity was placed in a standard sling. All sponge and needle counts were deemed correct prior to closure. The patient tolerated the procedure without apparent complication. He was transferred to recovery room in stable condition. MMODL / IJN: [id number] /
--- NOTE | 2023-09-08 11:25 | XR ---
EXAMINATION TYPE: XR shoulder limited LT DATE OF EXAM: 09/08/2023 COMPARISON: NONE HISTORY: Postop shoulder replacement TECHNIQUE: Shoulder examined in AP projection. FINDINGS: There is placement of a left shoulder prosthesis. No acute fractures are evident. Postsurgical soft t issue changes are evident. Small pleural effusion may be present. IMPRESSION: 1. No acute fracture post left shoulder replacement.
[2023-09-08] MEDS: droPERidol 5 MG/2 ML VIAL IVP ONE (12:30)
--- NOTE | 2023-09-08 20:38 | P.ANPRN ---
Procedure Note - Anesthesia - Nerve Block Performed Left Interscalene Single Time Out Performed: Yes Date of Procedure: 09/08/23 Procedure Start Time: 06:51 Procedure Stop Time: 06:57 Location of Patient: PreOp Indication: Acute Post-Operative Pain, Requested by Surgeon Sedation Type: Sedate with meaningful contact maintained Preparation: Sterile Prep Position: Supine Needle Types: Pajunk Needle Gauge: 21 Ultrasound used to visualize needle placement: Yes Ultrasound used to observe medication spread: Yes Blood Aspirated: No Pain Paresthesia on Injection Noted: No Resistance on Injection: Normal Image Stored and Saved: Yes Events: Uneventful and Well Tolerated (Ropivacaine 0.5% 20 cc plus dexamethasone 4 mg)
[2023-09-08] MEDS: ASPIRIN 81 MG PO SCH (22:35)
[2023-09-08] MEDS: TAMSULOSIN 0.4 MG CAP.ER.24H PO SCH (22:35)
[2023-09-08] MEDS: ACETAMINOPHEN TAB 500 MG TAB PO SCH (22:36)
[2023-09-08] MEDS: PREGABALIN 50 MG CAP PO SCH (22:36)
--- NOTE | 2023-09-09 00:14 | P.CONS ---
History of Present Illness - Reason for Consult Consult date: 09/08/23 Medical management Requesting physician: Chace Giles - Chief Complaint Post left shoulder reverse arthroplasty - History of Present Illness HISTORY OF PRESENT ILLNESS: 82-year-old gentleman office patient with active medical history of CKD, iron deficiency anemia, peripheral vertigo, osteoarthritis, irritable bowel syndrome, type 2 diabetes, benign prostatic hypertrophy, essential hypertension, BPH, recurrent sciatica, hypothyroidism, who apparently had significant injury of left shoulder over 6 months ago with MRI showing severe probable cuff with failure to conservative management was scheduled for elective total shoulder arthroplasty versus reverse shoulder arthroplasty apparently the inflammation and the scar tissue was severe patient ended up having a reverse shoulder arthroplasty successfully. Was admitted to the hospital with heart strain and pain is under control still complaining of slight hoarseness of his voice from having a G-tube for the time he was under anesthesia. Before his surgery was scheduled for cardiology and had full clearance patient is known to have bicuspid aortic valve has been watched closely with an echocardiogram and was walking. Also patient spent the part of the winter in [place] this came back last few weeks has been doing well. No surprises in [place] this year. REVIEW OF SYSTEMS: CONSTITUTIONAL: Well-developed no acute respiratory distress. EYES: No icterus sclerae, no conjunctivitis. EARS, NOSE, MOUTH, THROAT, and FACE: No sore throat, lymphadenopathy, carotid bruits or deformity. RESPIRATORY: No SOB cough or wheezes. CARDIOVASCULAR: No CP, Palpitation, PND, Orthopnea, or angina. GASTROINTESTINAL: No Abd pain, Nausea or vomiting, no Diarrhea or constipation, No GI Bleed, no distention or masses. GENITOURINARY: Negative for Hematuria or UTI, no kidney stones. Mild BPH with no sign of obstruction. INTEGUMENT/BREAST: Negative for any muscular injury with mild osteoarthritis.. HEMATOLOGIC/LYMPHATIC: Negative for bleed or purpura. MUSCULOSKELTAL: Negative for Myalgia or arthralgia. Left shoulder surgery with left arm in sling. NEURLOGICAL: No LOC, Sz or syncope, blurred vision dizziness or abnormality.. BEHAVIORAL/PSYCH: Negative. ENDOCRINE: Negative. PHYSICAL EXAMINATION: General Appearance: Alert, cooperative, no distress, appears stated age. Neck HEENT: Supple, no lymphadenopathy, no thyroid enlargement, no carotid bruits. Lungs: Clear to auscultation without crackles or wheezes no rhonchi, no deformity. Chest Wall: Chest wall normal expansion with deep inspiration no tenderness and no deformity was found on exam, no costochondral pain or discomfort. Heart: Regular rate and rhythm, S1, S2 normal, no murmur, rub or gallop. Back: Symmetric, no curvature, ROM normal, no CVA tenderness. Abdomen: Soft, non-tender, bowel sounds active all four quadrants, no masses, no organomegaly. Extremities: Extremities normal, atraumatic, no cyanosis or edema. Left shoulder in a sling with incision looks fine. Pulses: 2+ and symmetric. Skin: Skin color, texture, tugor normal, no rashes or lesions. Neurologic: Alert oriented x3 cranial nerves II through XII intact, no motor deficit, no abnormal balance or gait. ASSESSMENT AND PLAN: _Post left shoulder reverse arthroplasty: Doing well postsurgery continue pain management, continue to watch patient hemodynamic status carefully. _Hypertension: Remain on metoprolol and losartan 100 mg daily. Titrate dose higher if needed. _Hyperlipidemia: Continue atorvastatin 20 g daily. _Severe arthralgia: Has been on Celebrex and anti-inflammatory with no side effect. _BPH: Watch for any urinary retention continue Flomax. _Iron deficiency anemia: Continue iron supplement multivitamin. _Bicuspid aortic valve: Still seeing cardiology remain on metoprolol patient doing well does not need any surgery. _Chronic neuropathy: Has been on pregabalin 75 mg twice a day. _Trigeminal neuralgia: Well-controlled since his gamma knife remain on pregabalin. _GI prophylaxis: Continue Pepcid 20 mg daily. _DVT prophylaxis: Early mobilization and knee-high MILAGRO hose. CODE STATUS: Full code. Thank you Dr. Giles for allowing me to participate in the care of your patient if I can be any further help to please let me know. Past Medical History Past Medical History: Hyperlipidemia, Hypertension, Musculoskeletal Disorder, Osteoarthritis (OA), Prostate Disorder Additional Past Medical History / Comment(s): BPH, chronic back pain History of Any Multi-Drug Resistant Organisms: None Reported Past Surgical History: Hernia Repair, Joint Replacement, Orthopedic Surgery Additional Past Surgical History / Comment(s): [facility] inguinal hernia repairs, lt knee repair, 02-23-16 TOTAL RT HIP Past Anesthesia/Blood Transfusion Reactions: Motion Sickness Additional Past Anesthesia/Blood Transfusion Reaction / Comm: vertigo Past Psychological History: No Psychological Hx Reported Smoking Status: Former smoker Past Alcohol Use History: None Reported Additional Past Alcohol Use History / Comment(s): quit smoking 1969,started smoking at age 13, SMOKED 3 PPD ([facility]). He denies any alcohol abuse. He worked for the [employer] for 12 years. Past Drug Use History: None Reported - Past Family History Mother Family Medical History: Cancer Additional Family Medical History / Comment(s): Mother is alive at age 98 with history of breast ca([facility]) Father Family Medical History: Osteoarthritis (OA) Additional Family Medical History / Comment(s): back problems, at age 66 from blood clot or heart attack Medications and Allergies Home Medications Medication Instructions Recorded Confirmed Type Tamsulosin HCl 0.4 mg PO HS 10/29/14 09/08/23 History Atorvastatin [Lipitor] 10 mg PO DAILY 02/18/16 09/08/23 History Multivit-Min/FA/Lycopen/Lutein 1 tab PO DAILY 02/18/16 09/08/23 History [Centrum Silver Tablet] Vit C/E/Zn/Coppr/Lutein/Zeaxan 1 cap PO DAILY 02/18/16 09/08/23 History [Preservision Areds 2 Softgel] Aspirin EC [Ecotrin Low Dose] 81 mg PO BID 12/04/16 09/08/23 History Glucosamine/Chondr [place] A Sod [Osteo 1 tab PO DAILY 12/04/16 09/08/23 History Bi-Flex Caplet] Cholecalciferol [Vitamin D3 (25 25 mcg PO DAILY 01/25/22 09/08/23 History Mcg = 1000 Iu)] Losartan Potassium [Cozaar] 100 mg PO DAILY 01/25/22 09/08/23 History Metoprolol Tartrate [Lopressor] 25 mg PO DAILY 01/25/22 09/08/23 History Pregabalin [Lyrica] 50 mg PO BID 01/25/22 09/08/23 History Acetaminophen [Tylenol Arthritis] 1,300 mg PO BID 09/05/23 09/08/23 History Ferrous Sulfate [Feosol] 325 mg PO DAILY 09/05/23 09/08/23 History Ubidecarenone [Co Q-10] 100 mg PO DAILY 09/05/23 09/08/23 History Zinc Gluconate [Zinc] 50 mg PO DAILY 09/05/23 09/08/23 History Allergies Allergy/AdvReac Type Severity Reaction Status Date / Time No Known Allergies Allergy Verified 09/08/23 06:10 Physical Exam Vitals: Vital Signs Temp Pulse Resp BP Pulse Ox 09/08/23 19:26 97.5 F L 102 H 14 116/74 92 L 09/08/23 13:47 97.3 F L 95 121/67 95 09/08/23 11:15 71 18 137/77 95 09/08/23 10:59 77 23 149/91 95 09/08/23 10:44 78 19 154/77 95 09/08/23 10:29 68 23 143/81 95 09/08/23 10:14 76 22 156/78 98 09/08/23 09:59 77 17 164/82 96 09/08/23 09:44 74 21 148/82 97 09/08/23 09:29 74 16 159/79 96 09/08/23 09:14 96.8 F L 68 16 159/78 99 09/08/23 07:14 68 16 165/94 100 09/08/23 07:00 61 15 180/81 100 09/08/23 06:19 97.2 F L 60 16 199/98 98 Intake and Output 09/08/23 09/08/23 09/09/23 14:59 22:59 06:59 Intake Total 969 222 Output Total 400 Balance 569 222 Intake: IV 851 Oral 118 222 Output: Urine 300 Estimated Blood Loss 100 Other: Weight 84.1 kg
[2023-09-09] MEDS: HYDROcodone/APAP 7.5-325MG 1 EACH TAB PO PRN (00:24)
[2023-09-09] MEDS: HYDROmorphone 0.5 MG/0.5 ML SYRINGE IVP PRN (05:12)
[2023-09-09] MEDS ORDERED: bisacodyL 5 MG TABLET.DR PO PRN (07:34)
[2023-09-09 08:29] LABS: Basophils # (A) 0.02 X 10*3/uL (0.00-0.10); Basophils % (A) 0.2 %; Eosinophils # (A) 0.01 X 10*3/uL (0.04-0.35); Eosinophils % (A) 0.1 %; HCT 32.1 % (39.6-50.0); HGB 10.7 g/dL (13.0-17.0); Lymphocytes # (A) 1.15 X 10*3/uL (0.90-5.00); Lymphocytes % (A) 11.4 %; MCH 29.1 pg (27.0-32.0); MCHC 33.3 g/dL (32.0-37.0); MCV 87.2 FL (80.0-97.0); Mean Platelet Volume 10.1 FL (9.5-12.2); Monocytes # (A) 1.08 X 10*3/uL (0.20-1.00); Monocytes % (A) 10.7 %; NRBC Per 100 WBC 0 X 10*3/uL (0.00-0.01); Neutrophils % (A) 77.2 %; Platelet Count 199 X 10*3/uL (140-440); RBC 3.68 X 10*6/uL (4.40-5.60); RDW 13.9 % (11.5-14.5)
[2023-09-09] MEDS ORDERED: NON FORMULARY DRUG (Glucosamine/Chondr Su A Sod [Osteo Bi-Flex Caplet] 1 EACH Tablet) PO SCH (09:00)
[2023-09-09] MEDS ORDERED: NON FORMULARY DRUG (Ubidecarenone [Co Q-10] 300 MG Capsule) PO SCH (09:00)
[2023-09-09 09:04] VITALS: BP 124/71; PULSE 77; RESP 19; TEMP 98.5
[2023-09-09] MEDS: polyethylene glycoL 3350 17 GM POWD.PACK PO SCH (09:50)
[2023-09-09] MEDS: ATORVASTATIN 10 MG TAB PO SCH (09:51)
[2023-09-09] MEDS: MULTIVITAMINS, THERA 1 EACH TAB PO SCH (09:51)
[2023-09-09] MEDS: METOPROLOL TARTRATE 25 MG TAB PO SCH (09:51)
[2023-09-09] MEDS: LOSARTAN 50 MG TAB PO SCH (09:52)
[2023-09-09] MEDS: ZINC SULFATE 220 MG CAP PO SCH (09:52)
[2023-09-09] MEDS: FERROUS SULFATE 325 MG TAB PO SCH (09:52)
[2023-09-09] MEDS: VIT A,C & E-LUTEIN-MINERALS 1 EACH TAB PO SCH (10:40)
[2023-09-09] MEDS: CHOLECALCIFEROL 25 MCG (1000 IU) TABLET PO SCH (10:40)
--- NOTE | 2023-09-09 13:25 | P.DS ---
Providers Expected date of discharge: 09/09/23 Attending physician: Chace Giles Consults: 09/08/23 07:48 Consult Physician Routine Consulting Provider: Angel Nixon Reason/Comments: post op medical management Do you want consulting provider notified?: Yes Primary care physician: Angel Nixon - Discharge Diagnosis(es) (1) Osteoarthritis of left shoulder Patient was admitted to the OR on 09/08/23 to undergo a left reverse total shoulder arthroplasty. He had failed conservative measures as an outpatient and desired to proceed with elective surgery after given informed consent. He under went the above procedure which he tolerated well without complication. Postoperative hospital course has remained without complication. On day of discharge he is afebrile, vital signs stable, labs within acceptable ranges, tolerating by mouth meds and diet, voiding without difficulty, positive flatus, denies abdominal pain or calf pain, pain is controlled on oral pain medication and has no new complaints. Wound is benign, neurovascular status is intact, calves are soft and nontender, abdomen soft and nontender. Review of systems is negative for numbness, tingling, fever, chills, chest pain, shortness of breath, nausea, vomiting, dizziness, headaches, slurred speech or other. Current Visit: Yes Status: Acute Priority: Medium Procedures: Left reverse total shoulder Patient Condition at Discharge: Good Plan - Discharge Summary Discharge Rx Participant: Yes New Discharge Prescriptions: New bisacodyL [Dulcolax] 10 mg PO DAILY PRN tab PRN Reason: Constipation HYDROcodone/APAP 7.5-325MG [[place] 7.5-325] 1 each PO Q4H PRN #40 tab PRN Reason: Pain Scale 1 To 5 Doxycycline Hyclate 100 mg PO BID #10 tab HYDROcodone/APAP 7.5-325MG [[place] 7.5-325] 1 each PO Q4HR PRN #32 tab PRN Reason: Pain polyethylene glycoL 3350 [Miralax] 17 gm PO DAILY packet Docusate [Colace] 100 mg PO BID #60 capsule Continue Tamsulosin HCl 0.4 mg PO HS Atorvastatin [Lipitor] 10 mg PO DAILY Vit C/E/Zn/Coppr/Lutein/Zeaxan [Preservision Areds 2 Softgel] 1 cap PO DAILY Multivit-Min/FA/Lycopen/Lutein [Centrum Silver Tablet] 1 tab PO DAILY Glucosamine/Chondr [place] A Sod [Osteo Bi-Flex Caplet] 1 tab PO DAILY Aspirin EC [Ecotrin Low Dose] 81 mg PO BID Pregabalin [Lyrica] 50 mg PO BID Metoprolol Tartrate [Lopressor] 25 mg PO DAILY Ferrous Sulfate [Iron (65 MG Elemental)] 325 mg PO DAILY Cholecalciferol [Vitamin D3 (25 Mcg = 1000 Iu)] 25 mcg PO DAILY Losartan Potassium [Cozaar] 100 mg PO DAILY Zinc Gluconate [Zinc] 50 mg PO DAILY Ubidecarenone [Co Q-10] 100 mg PO DAILY Acetaminophen [Tylenol Arthritis] 1,300 mg PO BID Discharge Medication List Tamsulosin HCl 0.4 mg PO HS 10/29/14 [History] Atorvastatin [Lipitor] 10 mg PO DAILY 02/18/16 [History] Multivit-Min/FA/Lycopen/Lutein [Centrum Silver Tablet] 1 tab PO DAILY 02/18/16 [History] Vit C/E/Zn/Coppr/Lutein/Zeaxan [Preservision Areds 2 Softgel] 1 cap PO DAILY 02/18/16 [History] Aspirin EC [Ecotrin Low Dose] 81 mg PO BID 12/04/16 [History] Glucosamine/Chondr [place] A Sod [Osteo Bi-Flex Caplet] 1 tab PO DAILY 12/04/16 [History] Cholecalciferol [Vitamin D3 (25 Mcg = 1000 Iu)] 25 mcg PO DAILY 01/25/22 [History] Losartan Potassium [Cozaar] 100 mg PO DAILY 01/25/22 [History] Metoprolol Tartrate [Lopressor] 25 mg PO DAILY 01/25/22 [History] Pregabalin [Lyrica] 50 mg PO BID 01/25/22 [History] Acetaminophen [Tylenol Arthritis] 1,300 mg PO BID 09/05/23 [History] Ferrous Sulfate [Iron (65 MG Elemental)] 325 mg PO DAILY 09/05/23 [History] Ubidecarenone [Co Q-10] 100 mg PO DAILY 09/05/23 [History] Zinc Gluconate [Zinc] 50 mg PO DAILY 09/05/23 [History] Docusate [Colace] 100 mg PO BID #60 capsule 09/09/23 [Rx] Doxycycline Hyclate 100 mg PO BID #10 tab 09/09/23 [Rx] HYDROcodone/APAP 7.5-325MG [[place] 7.5-325] 1 each PO Q4H PRN #40 tab 09/09/23 [Rx] HYDROcodone/APAP 7.5-325MG [[place] 7.5-325] 1 each PO Q4HR PRN #32 tab 09/09/23 [Rx] bisacodyL [Dulcolax] 10 mg PO DAILY PRN tab 09/09/23 [Rx] polyethylene glycoL 3350 [Miralax] 17 gm PO DAILY packet 09/09/23 [Rx] Follow up Appointment(s)/Referral(s): Chace Giles MD [STAFF PHYSICIAN] - 09/21/23 11:00 am Activity/Diet/Wound Care/Special Instructions: MAINTAIN SLING KEEP WOUND CLEAN AND DRY TAKE MEDS DIRECTED NON WEIGHTBEARING LEFT ARM F/U IN OFFICE Discharge Disposition: HOME SELF-CARE
--- NOTE | 2023-09-09 17:23 | P.PN ---
Subjective Progress Note Date: 09/09/23 HISTORY OF PRESENT ILLNESS: 82-year-old gentleman office patient with active medical history of CKD, iron deficiency anemia, peripheral vertigo, osteoarthritis, irritable bowel syndrome, type 2 diabetes, benign prostatic hypertrophy, essential hypertension, BPH, recurrent sciatica, hypothyroidism, who apparently had significant injury of left shoulder over 6 months ago with MRI showing severe probable cuff with failure to conservative management was scheduled for elective total shoulder arthroplasty versus reverse shoulder arthroplasty apparently the inflammation and the scar tissue was severe patient ended up having a reverse shoulder arthroplasty successfully. Was admitted to the hospital with heart strain and pain is under control still complaining of slight hoarseness of his voice from having a G-tube for the time he was under anesthesia. Before his surgery was scheduled for cardiology and had full clearance patient is known to have bicuspid aortic valve has been watched closely with an echocardiogram and was walking. Also patient spent the part of the winter in [place] this came back last few weeks has been doing well. No surprises in [place] this year. 09/09/2023: Patient has done very well through the night, continue to have slight bit of pain in his nerve block We are out early in the day. He is able to walk to the bathroom and void without any difficulty. He is tolerating his pain management very well. No physical therapy be done at this time Patient will be follow with his orthopedic in the next 2 weeks before going for any physical therapy. Otherwise hopefully will be able to be discharged home today. REVIEW OF SYSTEMS: CONSTITUTIONAL: Well-developed no acute respiratory distress. EYES: No icterus sclerae, no conjunctivitis. EARS, NOSE, MOUTH, THROAT, and FACE: No sore throat, lymphadenopathy, carotid bruits or deformity. RESPIRATORY: No SOB cough or wheezes. CARDIOVASCULAR: No CP, Palpitation, PND, Orthopnea, or angina. GASTROINTESTINAL: No Abd pain, Nausea or vomiting, no Diarrhea or constipation, No GI Bleed, no distention or masses. GENITOURINARY: Negative for Hematuria or UTI, no kidney stones. Mild BPH with no sign of obstruction. INTEGUMENT/BREAST: Negative for any muscular injury with mild osteoarthritis.. HEMATOLOGIC/LYMPHATIC: Negative for bleed or purpura. MUSCULOSKELTAL: Negative for Myalgia or arthralgia. Left shoulder surgery with left arm in sling. NEURLOGICAL: No LOC, Sz or syncope, blurred vision dizziness or abnormality.. BEHAVIORAL/PSYCH: Negative. ENDOCRINE: Negative. PHYSICAL EXAMINATION: General Appearance: Alert, cooperative, no distress, appears stated age. Neck HEENT: Supple, no lymphadenopathy, no thyroid enlargement, no carotid bruits. Lungs: Clear to auscultation without crackles or wheezes no rhonchi, no d eformity. Chest Wall: Chest wall normal expansion with deep inspiration no tenderness and no deformity was found on exam, no costochondral pain or discomfort. Heart: Regular rate and rhythm, S1, S2 normal, no murmur, rub or gallop. Back: Symmetric, no curvature, ROM normal, no CVA tenderness. Abdomen: Soft, non-tender, bowel sounds active all four quadrants, no masses, no organomegaly. Extremities: Extremities normal, atraumatic, no cyanosis or edema. Left shoulder in a sling with incision looks fine. Pulses: 2+ and symmetric. Skin: Skin color, texture, tugor normal, no rashes or lesions. Neurologic: Alert oriented x3 cranial nerves II through XII intact, no motor deficit, no abnormal balance or gait. ASSESSMENT AND PLAN: _Post left shoulder reverse arthroplasty: Stable and doing well pain is well- managed and well-controlled. _Hypertension: Remain on metoprolol and losartan 100 mg daily. Systolic blood pressure remain below 150. _Hyperlipidemia: Continue atorvastatin 20 g daily. _Severe arthralgia: Will resume Celebrex and anti-inflammatory in few days. _BPH: Watch for any urinary retention continue Flomax. _Iron deficiency anemia: Continue iron supplement multivitamin. _Bicuspid aortic valve: Still seeing cardiology remain on metoprolol patient doing well does not need any surgery. _Chronic neuropathy: Has been on pregabalin 75 mg twice a day. _Trigeminal neuralgia: Back on pregabalin doing very well. Discharge planning: Patient be discharged home will be seen back in the office in the next week or so. Objective - Vital Signs Vital signs: Vital Signs Temp 98.8 F 09/09/23 01:39 Pulse 85 09/09/23 01:39 Resp 15 09/09/23 01:39 BP 117/69 09/09/23 01:39 Pulse Ox 93 L 09/09/23 01:39 FiO2 Intake & Output 05/23/24 05/23/24 05/24/24 06:59 18:59 06:59 Intake Total 300 1191 Output Total 400 Balance 300 791 Weight 84.1 kg 84.1 kg Intake: IV 300 851 Oral 340 Output: Urine 300 Estimated Blood Loss 100 Other: # Voids 2 - Labs CBC & Chem 7: 09/09/23 06:38
== END 2023-09-09 15:31 | disposition home or self-care (01) ==
LOC: OR 05:36 → 4SSUR 09:00 → OR 09-09 15:31
PROVIDERS: ATTEND Orthopaedic Surgery Sports Medicine
DX: M19.012 Primary osteoarthritis, left shoulder (principal); I12.9 Hypertensive chronic kidney disease with stage 1 through stage 4 chronic kidney disease, or unspecified chronic kidney disease; E11.22 Type 2 diabetes mellitus with diabetic chronic kidney disease; N40.0 Benign prostatic hyperplasia without lower urinary tract symptoms; K58.9 Irritable bowel syndrome, unspecified; G89.18 Other acute postprocedural pain; E78.5 Hyperlipidemia, unspecified; G50.0 Trigeminal neuralgia; E11.40 Type 2 diabetes mellitus with diabetic neuropathy, unspecified; Q23.1 Congenital insufficiency of aortic valve; E03.9 Hypothyroidism, unspecified; D50.9 Iron deficiency anemia, unspecified; Z79.899 Other long term (current) drug therapy; Z87.891 Personal history of nicotine dependence
CPT/HCPCS: 64415; 85025; 73020; 23472; C1776; J2250; J3370; J1100; J0690 ×3; J2405; J1170 ×2

== ENCOUNTER → 2024-02-07 | Outpatient (CLI) | payer MEDICARE, BC ==
[2024-02-07 12:43] LABS: African American GFR (CKD) 57 (>60 ml/min/1.73 sqM); Blood Urea Nitrogen 25 mg/dL (9-20); Non-African American GFR(CKD) 49 (>60 ml/min/1.73 sqM)
--- NOTE | 2024-02-07 13:47 | CT ---
EXAMINATION TYPE: CT angio chest CT DLP: 779.3 mGycm, Automated exposure control for dose reduction was used. DATE OF EXAM: 02/07/2024 1:25 PM COMPARISON: CTA chest 09/02/2022 CLINICAL INDICATION:Male, 83 years old with history of AAA; Follow up aortic aneurysm without rupture . TECHNIQUE/CONTRAST: CTA scan of the thorax is performed before and after the uneventful administration 80 mL [id number] i ntravenously. 3D reconstructed images are created on an independent workstation and reviewed.. FINDINGS: Lungs/Pleura: No evidence of focal consolidation, pleural effusion or pneumothorax. Few scattered brianne cified granulomas. Airway: Large airways are patent. Heart: Heart is within normal limits for size.. Small coronary calcifications. No pericardial effusio n. Aortic valvular calcifications. Vasculature: No evidence of intramural hematoma or dissection of the aorta. Stable aneurysmal dilatat ion of the thoracic aorta measuring up to 4.7 cm, previously 4.8 cm. Aortic root measures up to 3.8 c m, previously 3.6 cm. Posterior aortic arch diameter measures up to 3.0 cm, previously 3.1 cm. Descen ding thoracic aortic size at the diaphragm is 2.6 cm, previously 2.7 cm. Mild atherosclerotic calcifi cation of the aorta and its branches. Bovine aortic arch. No evidence for pulmonary embolism. Mediastinum: No evidence of adenopathy. Calcified right hilar lymph nodes. Musculoskeletal: Moderate degenerative disc disease changes are present throughout the thoracolumbar spine.. Postsurgical changes from a left shoulder arthroplasty. Advanced arthropathy of the right gaby ulder. Soft Tissues: Moderate bilateral gynecomastia. Lower neck: No significant findings. Upper Abdomen: Left hepatic lobe 2.7 cm cyst. Nonobstructive left renal calculi with largest visualiz ed calculi measuring up to 3 mm.. IMPRESSION: 1. Stable ascending thoracic aortic aneurysm measuring up to 4.7 cm. No evidence of aortic dissection or intramural hematoma. 2. Sequelae of prior granulomatous disease. [facility], , 02/07/2024 1:45 PM
== END | disposition home or self-care (01) ==
LOC: RADCTMAIN 12:10
PROVIDERS: ATTEND Internal Medicine Interventional Cardiology
DX: I71.21 Aneurysm of the ascending aorta, without rupture (principal)
CPT/HCPCS: 36415; 71275; 82565; 84520

== ENCOUNTER → 2024-10-06 | Outpatient (CLI) | payer MEDICARE, BC ==
[2024-10-06 13:17] LABS: HCT 34.8 % (39.6-50.0); HGB 11.2 g/dL (13.0-17.0); MCH 29.6 pg (27.0-32.0); MCHC 32.2 g/dL (32.0-37.0); MCV 92.1 FL (80.0-97.0); Mean Platelet Volume 10.1 FL (9.5-12.2); NRBC Per 100 WBC 0 X 10*3/uL (0.00-0.01); Platelet Count 186 X 10*3/uL (140-440); RBC 3.78 X 10*6/uL (4.40-5.60); RDW 14.6 % (11.5-14.5)
[2024-10-06 13:26] LABS: NT-Pro-B-Type Natriuretic Pept 251 pg/mL (0-450)
[2024-10-06 13:37] LABS: Chol/HDL Ratio 2.15 Ratio; VLDL Calculation 12.84 mg/dL (5.00-40.00)
[2024-10-06 13:38] LABS: ALT 24 U/L (10-49); AST 25 U/L (14-35); Alkaline Phosphatase 65 U/L (41-126); BUN/Creat Ratio 19.67 Ratio (12.00-20.00); Blood Urea Nitrogen 23.6 mg/dL (9.0-27.0); Calcium 9.2 mg/dL (8.7-10.3); Carbon Dioxide 24.8 mmol/L (21.6-31.8); Chloride 106 mmol/L (96-109); Glucose 97 mg/dL (70-110); Potassium 4.6 mmol/L (3.5-5.5); Sodium 141 mmol/L (135-145); Total Bilirubin 0.5 mg/dL (0.3-1.2)
== END | disposition home or self-care (01) ==
LOC: LABWHC1 09:21
PROVIDERS: ATTEND Student in an Organized Health Care Education/Training Program
DX: Z13.6 Encounter for screening for cardiovascular disorders (principal); D72.9 Disorder of white blood cells, unspecified; R79.89 Other specified abnormal findings of blood chemistry; E11.9 Type 2 diabetes mellitus without complications; E03.9 Hypothyroidism, unspecified
CPT/HCPCS: 36415; 80053; 80061; 83036; 83880; 84443; 85027